=== PATIENT | male | born 1970 | race Caucasian/White ===

== ENCOUNTER → 2020-04-07 10:20 | Outpatient (CLI) | payer BC, SELFPAY ==
--- NOTE | ~2020-04-07 | XR_ITS ---
EXAMINATION: XR chest 2V DATE: 04/07/2020 10:29 INDICATION: Acute upper respiratory infection. COVID positive TECHNIQUE: PA and lateral views of the chest were obtained. COMPARISON: Chest radiograph dated 02/01/2017 FINDINGS: The lungs are clear with no focal airspace opacities, pulmonary edema, pleural effusion or pneumothor ax. The cardiomediastinal silhouette is normal. Visualized bones and soft tissues are unremarkable. IMPRESSION: 1. No acute cardiopulmonary disease. Reviewed, dictated and finalized at location A. WORKER
== END ==
PROVIDERS: PCP Family Medicine; Visit Provider Nurse Practitioner Family
DX: J06.9 Acute upper respiratory infection, unspecified (principal)
CPT/HCPCS: 71046

== ENCOUNTER → 2020-06-04 16:45 | Outpatient (CLI) | payer BC, SELFPAY ==
--- NOTE | ~2020-06-04 | XR_ITS ---
XR lumbar spine min 4V 06/04/2020 17:44 Indication: Back pain Procedure: 5 views lumbar spine Comparison: No prior studies for comparison. Findings: Vertebral body heights are maintained. Mild lower lumbar facet hypertrophy. No fracture or traumatic malalignment. There are cholecystectomy clips. No evidence for spondylolysis or spondylolis thesis. Pedicles intact. Impression: 1: Mild lumbar spondylosis. Reviewed, dictated and finalized at location A. F ENG[employer]ER [employer] Impression: 1: Mild lumbar spondylosis.
== END ==
PROVIDERS: Visit Provider Nurse Practitioner Family
DX: M47.817 Spondylosis without myelopathy or radiculopathy, lumbosacral region (principal)
CPT/HCPCS: 72110

== ENCOUNTER 2023-09-21 09:39 | Outpatient (CLI) | payer OTHER, SELFPAY ==
--- NOTE | ~2023-09-21 | XR_ITS ---
EXAMINATION: XR chest 2V DATE: 09/21/2023 09:50 INDICATION: Shortness of breath. Cough. TECHNIQUE: Frontal and lateral views of the chest were obtained. COMPARISON: Chest 2 views 04/07/2020 FINDINGS: There is no pneumonia, pleural effusion, or pneumothorax. The heart size is normal. IMPRESSION: 1. No acute cardiopulmonary disease. Reviewed, dictated and finalized at location A.
== END 2023-09-21 09:40 ==
PROVIDERS: PCP Family Medicine; Visit Provider Family Medicine
DX: R06.02 Shortness of breath (principal); R05.9 Cough, unspecified
CPT/HCPCS: 71046

== ENCOUNTER 2024-06-21 10:17 | Outpatient (CLI) | payer OTHER, SELFPAY ==
--- NOTE | ~2024-06-21 | XR_ITS ---
Left Knee Technique: AP, lateral, and sunrise views were obtained. Clinical History: Pain Findings: No fracture or dislocation is seen. Osseous alignment is anatomic. Joint spaces are preserv ed without degenerative or erosive change. Soft tissues are unremarkable. No joint effusion is seen. Impression: Unremarkable left knee radiographs. Reviewed, dictated and finalized at location . MATION TECHNICIAN Impression: Unremarkable left knee radiographs.
--- NOTE | ~2024-06-21 | XR_ITS ---
Right Knee Technique: AP, lateral, and sunrise views were obtained. Clinical History: Pain Findings: No fracture or dislocation is seen. Prior ACL reconstruction noted. Osseous alignment is an atomic. Joint spaces are preserved without degenerative or erosive change. Soft tissues are unremarka ble. No joint effusion is seen. Impression: No acute abnormality. Prior ACL reconstruction. Reviewed, dictated and finalized at location . IAL EDUCATION DIRECTOR Impression: No acute abnormality. Prior ACL reconstruction.
== END 2024-06-21 10:18 | disposition home or self-care (01) ==
LOC: MICIMG 10:21
PROVIDERS: PCP Family Medicine
DX: M25.461 Effusion, right knee (principal); Z98.890 Other specified postprocedural states
CPT/HCPCS: 73562